=== PATIENT | male | born 1995 | race Caucasian/White ===

== ENCOUNTER 2022-06-05 20:46 | Inpatient (IN) | payer SELFPAY ==
[~2022-06-05] VITALS: Ht 172.7 cm; Wt 68.5 kg
[2022-06-05 21:17] LABS: HEMATOCRIT 45.5 % (42.0-52.0); MEAN CORPUSCULAR HEMOGLOBIN 28.8 pg (27.0-33.0); MEAN CORPUSCULAR VOLUME 87.5 fl (80.0-96.0); PLATELET COUNT, AUTOMATED 329 10^3/uL (150-450); WHITE BLOOD COUNT 11.9 10^3/uL (4.0-10.0)
[2022-06-05 21:39] LABS: ETHYL ALCOHOL (ETHANOL) 0.004 % (0.000-0.010)
[2022-06-05 21:41] LABS: SALICYLATE LEVEL < 3.0 MG/DL (<30)
[2022-06-05 21:42] LABS: ACETAMINOPHEN LEVEL < 2.0 UG/ML (10.0-20.0); ALBUMIN 4.2 G/DL (3.2-5.2); ALKALINE PHOSPHATASE 80 U/L (46-116); ALT/SGPT 16 U/L (7.0-40); AST/SGOT 17 U/L (<34); BILIRUBIN,DIRECT < 0.1 MG/DL (<0.4); BILIRUBIN,TOTAL 0.2 MG/DL (0.3-1.2); BLOOD UREA NITROGEN 17 MG/DL (9-23); CALCIUM LEVEL 9.5 MG/DL (8.5-10.1); CARBON DIOXIDE LEVEL 24 MMOL/L (20-31); CHLORIDE LEVEL 106 MMOL/L (98-107); CREATININE FOR GFR 0.87 MG/DL (0.70-1.30); GLOMERULAR FILTRATION RATE > 60.0 (>60); GLUCOSE, FASTING 121 MG/DL (60-100); POTASSIUM SERUM 4.3 MMOL/L (3.5-5.1); SODIUM LEVEL 139 MMOL/L (136-145)
[2022-06-05 21:44] LABS: THYROID STIMULATING HORMONE 1.406 uIU/ML (0.55-4.78)
[2022-06-05 21:54] LABS: BARBITURATES URINE NEGATIVE (NEGATIVE); BENZODIAZEPINES URINE NEGATIVE (NEGATIVE); COCAINE METABOLITE URINE NEGATIVE (NEGATIVE); METHADONE URINE NEGATIVE (NEGATIVE); OPIATES URINE NEGATIVE (NEGATIVE); PHENCYCLIDINE URINE NEGATIVE (NEGATIVE)
[2022-06-05 21:55] LABS: AMPHETAMINES LEVEL URINE POSITIVE (NEGATIVE); CANNABINOIDS URINE POSITIVE (NEGATIVE)
[2022-06-06] MEDS ORDERED: HOME MED LIST COMPLETE! XX SCH
[2022-06-06] MEDS ORDERED: diphenhydrAMINE 25MG CAP PO PRN (13:20)
[2022-06-06] MEDS ORDERED: MAALOX 30 ML SUSP *UDC PO PRN (13:20)
[2022-06-06] MEDS ORDERED: MOM 30ML SUSPENSION UDC PO PRN (13:20)
[2022-06-06] MEDS ORDERED: traZODone 50 MG TAB PO PRN (13:20)
[2022-06-06] MEDS ORDERED: IBUPROFEN 400MG TAB PO PRN (13:20)
[2022-06-06 14:35] VITALS: BP 110/59
[2022-06-06] MEDS: NICOTINE 21MG/24HR 1 EA TRANSDERMAL TD SCH (15:09)
[2022-06-07 06:45] VITALS: BP 127/69
[2022-06-07] MEDS: NICOTINE 21MG/24HR 1 EA TRANSDERMAL TD SCH (08:52)
[2022-06-07] MEDS ORDERED: SERTRALINE HCL 25 MG TABLET PO ONE (11:00)
[2022-06-07] MEDS ORDERED: hydrOXYzine 50 MG TAB PO PRN (11:00)
[2022-06-07] MEDS ORDERED: OLANZapine ORAL DISINTEGRATING TAB 5MG PO ONE (14:15)
[2022-06-07] MEDS ORDERED: SERT50TA29 PO (14:55)
[2022-06-08 06:30] VITALS: BP 111/60
[2022-06-08] MEDS: NICOTINE 21MG/24HR 1 EA TRANSDERMAL TD SCH (08:43)
[2022-06-08] MEDS ORDERED: SERTRALINE HCL 50 MG TAB PO SCH (09:00)
== END 2022-06-08 10:23 | disposition home or self-care (01) | DRG 776 ==
LOC: M ED 20:46 → M ED INP 06-06 13:18 → M PSY 06-06 14:37
PROVIDERS: ADMIT Student in an Organized Health Care Education/Training Program; ATTEND Psychiatry & Neurology Psychiatry
DX: F15.94 Other stimulant use, unspecified with stimulant-induced mood disorder (principal); R45.851 Suicidal ideations; F60.89 Other specific personality disorders; F32.A Depression, unspecified; F17.210 Nicotine dependence, cigarettes, uncomplicated; Z20.822 Contact with and (suspected) exposure to COVID-19; Z91.51 Personal history of suicidal behavior; Z56.0 Unemployment, unspecified; Z65.3 Problems related to other legal circumstances; Z63.5 Disruption of family by separation and divorce; Z81.1 Family history of alcohol abuse and dependence; Z63.8 Other specified problems related to primary support group